=== PATIENT | male | born 1985 | race Caucasian/White ===

== ENCOUNTER 2017-10-12 08:20 | Emergency (ER) | payer SELFPAY ==
[~2017-10-12] VITALS: Ht 175.3 cm; Wt 80.0 kg
[2017-10-12 08:26] VITALS: BP 149/82; PULSE 108; RESP 18; TEMP 97.9; O2SAT 99
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
[2017-10-12] MEDS ORDERED: SODIUM CHLOR 0.9% 1000 ML INJ 1,000 ML IV ONE (09:00)
[2017-10-12] MEDS ORDERED: diphenhydrAMINE HCL 50 MG CAP PO ONE (12:15)
[2017-10-12] MEDS ORDERED: OLANZapine ODT 10 MG TAB PO ONE (12:15)
[2017-10-12 18:18] VITALS: BP 134/75; PULSE 65; RESP 16; TEMP 98.5; O2SAT 99
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
[2017-10-12 22:41] VITALS: BP 142/65; PULSE 68; RESP 18; TEMP 98.3; O2SAT 99
[2017-10-13 06:39] VITALS: BP 130/68; PULSE 71; RESP 17; TEMP 97.6; O2SAT 98
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
--- NOTE | 2017-10-13 11:22 | HHI.PYPN ---
Subjective Remarks Patient initially seen and screened by psychiatric nurse practitioner Mariam Toro, she has lift the Skelton act. And recommended patient to be discharged by ED staff. This being in the motor electrician hours the physician imaging assistant ordered the discharge delayed until the morning and requested a reevaluation. Patient is been seen by me this morning he is alert oriented cooperative is somewhat demanding and entitled and irritable. Or we does not meet Skelton criteria at this time I agree with nurse practitioner Mariam Toro's opinion patient to be discharged. Review of Systems Except as stated in HPI: all other systems reviewed are Neg Mental Status Examination Appearance: Appropriate (Wearing paper scrubs) Consciousness: Alert Orientation: x4 Motor Activity: Normal gait Speech: Unremarkable Language: Adequate Fund of Knowledge: Adequate Attention and Concentration: Adequate Memory: Unremarkable Mood: Angry (When a discussion of discharge was initiated) Affect: Appropriate Thought Process & Associations: Intact, Logical, Goal directed Thought Content: Appropriate Hallucination Type: None Delusion Type: None Suicidal Ideation: No Suicidal Plan: No Suicidal Intention: No Homicidal Ideation: No Homicidal Plan: No Homicidal Intention: No Insight: Poor Judgment: Impulsive Results Vitals/IOs Vital Signs Date Time Temp Pulse Resp B/P (MAP) Pulse Ox O2 Delivery O2 Flow Rate FiO2 10/13/17 11:17 10/13/17 06:39 97.6 71 17 98 Room Air Assessment & Plan Problem List: (1) Cocaine abuse ICD Codes: F14.10 - Cocaine abuse, uncomplicated Status: Acute (2) Substance-induced psychotic disorder ICD Codes: F19.959 - Other psychoactive substance use, unspecified with psychoactive substance-induced psychotic disorder,unspecified Status: Acute Assessment & Plan Estimated LOS: days I thank you with [facility]'s decision to lift Skelton act patient does not meet Skelton criteria he is to be discharged this morning Justification for Cont. Inpt. Referred to NA follow-up PCP Discharge Planning See above Request HC Surrog/Guard Advoc?: No Ed Stephens MD Oct 13, 2017 11:22
[2017-10-13 11:44] VITALS: BP 166/71; PULSE 84; RESP 16; TEMP 98.4; O2SAT 98
--- NOTE | 2017-10-13 12:17 | PD ---
Physical Exam Time Seen by Provider: 12:[address] Stephens has evaluated the patient, lifted Nafisa trinidad and cleared patient for discharge. Data Data Last Documented VS Vital Signs Date Time Temp Pulse Resp B/P (MAP) Pulse Ox O2 Delivery O2 Flow Rate FiO2 10/13/17 11:44 98.4 84 16 166/71 (102) 98 Room Air Orders Orders Drug Screen, Random Urine (10/12/17 08:33) Sodium Chlor 0.9% 1000 Ml Inj (Ns 1000 M (10/12/17 09:00) Psych Screen (10/12/17 10:31) Diet Regular Basic (10/12/17 Lunch) Olanzapine Odt (Zyprexa Zydis Odt) (10/12/17 12:15) Diphenhydramine (Benadryl) (10/12/17 12:15) Diet Regular Basic (10/12/17 Dinner) Diet Regular Basic (10/13/17 Breakfast) Diet Regular Basic (10/13/17 Lunch) Labs Laboratory Tests Test 10/12/17 08:52 Urine Opiates Screen NEG Urine Barbiturates Screen NEG Urine Amphetamines Screen NEG Urine Benzodiazepines Screen NEG Urine Cocaine Screen POS Urine Cannabinoids Screen POS MDM Supervised Visit with MARIAH: No Narrative Course Dr. Stephens has evaluated the patient, lifted Nafisa act and cleared patient for discharge. The patient is no longer acting paranoid. Says he did too much cocaine last night. Patient contracts safety. Denies suicidal or homicidal ideations. Patient will be provided community resource packet to [facility] for follow-up. Has friends and family for support. Patient was medically cleared by alternate provider prior to psych screening. Patient has been evaluated by psychiatry and and is now cleared for discharge. Diagnosis Primary Impression: Cocaine abuse Additional Impression: Substance-induced psychotic disorder Referrals: [facility] (Out patient) [facility] Primary Care Physician Psychiatrist [facility]os [facility] Patient Instructions: Cocaine Abuse (ED), General Instructions Departure Forms: Tests/Procedures Additional Instruction: Contract safety to your self and others Stop using drugs Follow-up with psychiatry Follow-up with primary care provider Follow-up with Moses Ackerman Return to the emergency department immediately with worsening of symptoms Med/Other Pt SpecificInfo: No Change to Meds, No Meds Exist/No RX given Scripts No Active Prescriptions or Reported Meds Disposition: 01 DISCHARGE HOME Condition: Stable Shannon Barnhart Oct 13, 2017 12:17
== END 2017-10-13 14:26 | disposition home or self-care (01) ==
LOC: NEPE 08:20 → NEPJ 10-13 14:26
DX: F14.159 Cocaine abuse with cocaine-induced psychotic disorder, unspecified (principal); Z72.0 Tobacco use
CPT/HCPCS: 80307; 99284; Q0163

== ENCOUNTER 2017-10-15 02:38 | Inpatient (IN) | payer SELFPAY ==
[~2017-10-15] VITALS: Ht 185.4 cm; Wt 84.8 kg
[2017-10-15] VITALS (11 sets, daily range): BP systolic 121–177; BP diastolic 51–90; PULSE 80–151; RESP 16–25; TEMP 98.7–101; O2SAT 96–100
[2017-10-15] MEDS ORDERED: SODIUM CHLOR 0.9% 1000 ML INJ 1,000 ML IV ONE ×2 (02:45→04:45)
[2017-10-15] MEDS ORDERED: LORazepam 2 MG/ML VIAL IV PUSH ONE ×2 (02:45→03:45)
--- NOTE | 2017-10-15 03:05 | PD ---
HPI Chief Complaint: OD/ Ingestion Time Seen by Provider: 02:44 Travel History International Travel<30 days: No Contact w/Intl Traveler<30days: No Traveled to known affect area: No History of Present Illness HPI The patient is a 32 year old male who presents to the [facility] emergency department with a history of being found agitated and confused. Ambulance services reported that the patient reportedly smoked a cigarette that was laced with something and then became agitated. The patient was so agitated that he became violent and had to be restrained for his and the ambulance services safety. The patient received 350 mg of ketamine IM for delirious agitation. The patient then became more calm, however he continued to be tachypneic and tachycardic. No other history is able to be obtained from the patient. The patient arrives with a heart rate in the 140s. The patient's electronic medical record was reviewed for additional history regarding the patient. According to the electronic medical record the patient was last seen in the emergency department on October 12, 2017 in a similar state. On that occasion the patient was positive for cocaine and cannabinoids. [facility] Past Medical History Narrative Medical The patient's past medical history is unable to be obtained. Medical History: Unable to Obtain Past Surgical History Surgical History: Unable to Obtain Social History Alcohol Use: Yes Tobacco Use: Yes Substance Use: Yes Allergies-Medications (Allergen,Severity, Reaction): Coded Allergies: No Known Allergies (Unverified , 10/15/17) Reported Meds & Prescriptions Reported Meds & Active Scripts Active No Active Prescriptions or Reported Medications Review of Systems ROS Limitations: Altered Mental Status, Psychotic Physical Exam Narrative General: The patient is a well-developed well-nourished male, in restraints on arrival, eyes open, however with a decreased level of consciousness consistent with a 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 Head and Neck exam: Head is normocephalic, evidence of an abrasion to the right side of the face and forehead. No increased facial bone motility. No crepitus or step-off of the facial bones. Eyes: The patient is uncooperative with formal neurologic testing or extraocular motion testing. The patient has conjunctival injection noted bilaterally. Nose: Midline septum with pink mucous membranes Mouth: Dentition unremarkable. Moist mucus membranes. Posterior oropharynx is not erythematous. No tonsillar hypertrophy. Uvula midline. Airway patent. Neck: No palpable lymphadenopathy. No nuchal rigidity. No thyromegaly. Cardiovascular: Sinus tachycardia in the 140s without murmurs, gallops, or rubs. No pulse deficit to the extremities on simultaneous auscultation and palpation of his radial artery. Lungs: Clear to auscultation bilaterally. No wheezes, rhonchi, or rales. Abdomen: Soft, without tenderness to palpation in all 4 quadrants of the abdomen. No guarding, rebound, or rigidity. Normal bowel sounds are audible. No tenderness on palpation of McBurney's point. Extremities: No clubbing, cyanosis, or edema. 2+ pulses in all 4 extremities. No calf tenderness on palpation. Back: No spinous process tenderness to palpation. No costovertebral angle tenderness to palpation. Neurologic Exam: Grossly nonfocal. The patient is uncooperative with formal neurologic testing. The patient moves all extremities equally with 5/5 strength. No evidence of facial asymmetry. The patient has intact sensation over all dermatomes. Skin Exam: No rash noted. Intact skin that is warm and dry. Data Data Last Documented VS Vital Signs Date Time Temp Pulse Resp B/P (MAP) Pulse Ox O2 Delivery O2 Flow Rate FiO2 10/15/17 02:58 101.0 151 25 121/51 (74) 100 Room Air Orders Orders Electrocardiogram (10/15/17 02:44) Complete Blood Count With Diff (10/15/17 02:44) Comprehensive Metabolic Panel (10/15/17 02:44) Creatine Kinase (Cpk) (10/15/17 02:44) Ckmb (Isoenzyme) Profile (10/15/17 02:44) Prothrombin Time / Inr (Pt) (10/15/17 02:44) Act Partial Throm Time (Ptt) (10/15/17 02:44) Lipase (10/15/17 02:44) Urinalysis - C+S If Indicated (10/15/17 02:44) Cath For Specimen (10/15/17 02:44) Magnesium (Mg) (10/15/17 02:44) Thyroid Stimulating Hormone (10/15/17 02:44) Chest, Single Ap (10/15/17 02:44) Iv Access Insert/Monitor (10/15/17 02:44) Ecg Monitoring (10/15/17 02:44) Oximetry (10/15/17 02:44) Drug Screen, Random Urine (10/15/17 02:44) Alcohol (Ethanol) (10/15/17 02:44) Salicylates (Aspirin) (10/15/17 02:44) Tylenol (Acetaminophen) (10/15/17 02:44) Ct Brain W/O Iv Contrast(Rout) (10/15/17 02:44) Sodium Chlor 0.9% 1000 Ml Inj (Ns 1000 M (10/15/17 02:45) Lorazepam Inj (Ativan Inj) (10/15/17 02:45) Lorazepam Inj (Ativan Inj) (10/15/17 03:45) CKMB (10/15/17 02:55) CKMB% (10/15/17 02:55) Acetaminophen (Tylenol) (10/15/17 04:45) Sodium Chlor 0.9% 1000 Ml Inj (Ns 1000 M (10/15/17 04:45) Admit To Inpatient (10/15/17 ) Vital Signs (Adult) Q4H (10/15/17 04:57) Activity Oob With Assistance (10/15/17 04:57) Flexographic Press Plate Setter / Telemetry .CONTINUOUS (10/15/17 04:57) Intake + Output LUISA.QSHIFT (10/15/17 04:57) Diet Npo (10/15/17 Breakfast) Sodium Chlor 0.9% 1000 Ml Inj (Ns 1000 M (10/15/17 04:57) Sodium Chloride 0.9% Flush (Ns Flush) (10/15/17 05:00) Sodium Chloride 0.9% Flush (Ns Flush) (10/15/17 09:00) Acetaminophen (Tylenol) (10/15/17 05:00) Ondansetron Inj (Zofran Inj) (10/15/17 05:00) Basic Metabolic Panel (Bmp) (10/16/17 06:00) Complete Blood Count With Diff (10/16/17 06:00) Creatine Kinase (Cpk) (10/15/17 09:00) Creatine Kinase (Cpk) (10/15/17 15:00) Case Management Consult (10/15/17 04:57) Naloxone Inj (Narcan Inj) (10/15/17 05:00) Inpatient Certification (10/15/17 ) Basic Metabolic Panel (Bmp) (10/15/17 09:00) Basic Metabolic Panel (Bmp) (10/15/17 15:00) Alcohol Withdrawal Asmt-Ciwa Q4HX18 (10/15/17 05:01) ^ Seizure Precautions (10/15/17 05:01) Thiamine Inj (Thiamine Inj) (10/15/17 06:00) Consult Cm-Etoh Abuse Dc Plan (10/15/17 ) Flumazenil Inj (Romazicon Inj) (10/15/17 05:15) Lorazepam (Ativan) (10/15/17 05:15) Lorazepam Inj (Ativan Inj) (10/15/17 05:15) Lorazepam (Ativan) (10/15/17 05:15) Lorazepam Inj (Ativan Inj) (10/15/17 05:15) Lorazepam Inj (Ativan Inj) (10/15/17 05:15) Lorazepam Inj (Ativan Inj) (10/15/17 05:15) Admit Order (Ed Use Only) (10/15/17 05:12) Labs Laboratory Tests Test 10/15/17 02:55 White Blood Count 19.8 TH/MM3 Red Blood Count 5.06 MIL/MM3 Hemoglobin 16.0 GM/DL Hematocrit 49.1 % Mean Corpuscular Volume 97.2 FL Mean Corpuscular Hemoglobin 31.6 PG Mean Corpuscular Hemoglobin Concent 32.5 % Red Cell Distribution Width 12.6 % Platelet Count 338 TH/MM3 Mean Platelet Volume 8.4 FL Neutrophils (%) (Auto) 53.0 % Lymphocytes (%) (Auto) 38.9 % Monocytes (%) (Auto) 5.5 % Eosinophils (%) (Auto) 2.0 % Basophils (%) (Auto) 0.6 % Neutrophils # (Auto) 10.5 TH/MM3 Lymphocytes # (Auto) 7.7 TH/MM3 Monocytes # (Auto) 1.1 TH/MM3 Eosinophils # (Auto) 0.4 TH/MM3 Basophils # (Auto) 0.1 TH/MM3 CBC Comment AUTO DIFF Differential Total Cells Counted 100 Neutrophils % (Manual) 51 % Band Neutrophils % 1 % Lymphocytes % 31 % Monocytes % 3 % Eosinophils % 4 % Neutrophils # (Manual) 10.7 TH/MM3 Metamyelocytes 1 % Myelocytes 1 % Differential Comment FINAL DIFF MANUAL Atypical Lymphocytes 8 % Platelet Estimate NORMAL Platelet Morphology Comment NORMAL Red Cell Morphology Comment NORMAL Prothrombin Time 10.7 SEC Prothromb Time International Ratio 1.1 RATIO Activated Partial Thromboplast Time 28.7 SEC Blood Urea Nitrogen 11 MG/DL Creatinine 2.05 MG/DL Random Glucose 212 MG/DL Total Protein 9.2 GM/DL Albumin 4.8 GM/DL Calcium Level 9.3 MG/DL Magnesium Level 3.5 MG/DL Alkaline Phosphatase 123 U/L Aspartate Amino Transf (AST/SGOT) 197 U/L Alanine Aminotransferase (ALT/SGPT) 68 U/L Total Bilirubin 0.6 MG/DL Sodium Level 139 MEQ/L Potassium Level 4.1 MEQ/L Chloride Level 99 MEQ/L Carbon Dioxide Level 7.3 MEQ/L Anion Gap 33 MEQ/L Estimat Glomerular Filtration Rate 38 ML/MIN Total Creatine Kinase 9259 U/L Creatine Kinase MB 7.9 NG/ML Creatine Kinase MB % 0.1 % Lipase 245 U/L Thyroid Stimulating Hormone 3rd Gen 1.730 uIU/ML Salicylates Level 4.4 MG/DL Acetaminophen Level LESS THAN 2.0 MCG/ML Ethyl Alcohol Level 23 MG/DL MDM Medical Decision Making Medical Screen Exam Complete: Yes Emergency Medical Condition: Yes Medical Record Reviewed: Yes Interpretation(s) Last Impressions Chest X-Ray 10/15/17 0244 Signed Impressions: Service Date/Time: Sunday, October 15, 2017 03:04 - CONCLUSION: No acute disease. Ed Rene MD Differential Diagnosis Substance-induced psychosis, versus acute psychotic break, versus delirium, versus sympathomimetic toxicity Narrative Course During the course of the patient's emergency department visit, the patient's history, examination, and differential diagnosis were reviewed with the patient. The patient was placed on a potline monitor with oximetry and frequent blood pressure monitoring. The patient had IV access obtained and blood work sent for analysis. An EKG was done on arrival. The patient's EKG shows a sinus tachycardia with a short MS interval, heart rate of 147, QRS duration is 94 ms, QTC 373 ms. The patient was noted to be febrile with a temp of 101. The patient was started on normal saline 2 L IV fluid bolus was administered. The patient was given Ativan 2 mg IV. The patient was given Tylenol 650 p.o. 1 after he became more awake and alert and was able to tolerate p.o. The patient's laboratory studies were reviewed and remarkable for a white count of 19.8, hemoglobin 16, platelets 338 with 51 neutrophils, 1 band, 31 lymphocytes, CMP is remarkable for CO2 of 7.3, anion gap 33, creatinine 2.05, glucose 212, magnesium 3.5, AST 197, alk phos 123, CPK 9259, MB percent 0.1. Lipase 245, TSH 1.73. PT 10.7, PTT 28.7, acetaminophen is less than 2, alcohol 23, salicylate 4.4 Radiology studies were reviewed and remarkable for a chest x-ray that shows no acute cardiopulmonary disease. The patient's results were discussed with the patient, including the plan of care. I explained that further testing and/ or monitoring is indicated based on the patient's history, examination, and/ or laboratory findings. Therefore, I recommended admission for additional evaluation. The patient expressed understanding and was agreeable with this plan. The patient was admitted to the hospital in guarded condition and sent to a bed under the care of the [facility] service. Physician Communication Physician Communication The patient's case including history, pertinent physical examination findings, and laboratory studies were discussed with Dr. Spivey. It was agreed that the patient would be admitted to the [facility] service. Diagnosis Primary Impression: Psychosis Qualified Codes: F29 - Unspecified psychosis not due to a substance or known physiological condition Additional Impressions: Sympathomimetic adverse reaction Qualified Codes: T44.905A - Adverse effect of unspecified drugs primarily affecting the autonomic nervous system, initial encounter Rhabdomyolysis Qualified Codes: M62.82 - Rhabdomyolysis Admitting Information Admitting Physician Requests: Admit Scripts No Active Prescriptions or Reported Meds Bisi Elizalde MD Oct 15, 2017 03:05
[2017-10-15 03:11] LABS: INTERNATIONAL NORMALIZED RATIO 1.1 RATIO; PROTHROMBIN TIME - PATIENT 10.7 SEC (9.8-11.6)
[2017-10-15 03:12] LABS: AUTOMATED NEUTROPHIL # 10.5 TH/MM3 (1.8-7.7); BASOPHIL # 0.1 TH/MM3 (0-0.2); BASOPHIL % 0.6 % (0.0-2.0); EOSINOPHIL # 0.4 TH/MM3 (0-0.4); HEMATOCRIT 49.1 % (39.0-51.0); LYMPH % 38.9 % (9.0-44.0); LYMPHOCYTE # 7.7 TH/MM3 (1.0-4.8); MEAN CELL VOLUME 97.2 FL (80.0-100.0); MEAN CORPUSCULAR HEMOGLOBIN 31.6 PG (27.0-34.0); MEAN CORPUSCULAR HGB CONC 32.5 % (32.0-36.0); MEAN PLATELET VOLUME 8.4 FL (7.0-11.0); MONO % 5.5 % (0.0-8.0); MONOCYTE # 1.1 TH/MM3 (0-0.9); PLATELET COUNT 338 TH/MM3 (150-450); RED BLOOD COUNT 5.06 MIL/MM3 (4.50-5.90); RED CELL DISTRIBUTION WIDTH 12.6 % (11.6-17.2); WHITE BLOOD COUNT 19.8 TH/MM3 (4.0-11.0)
--- NOTE | 2017-10-15 03:23 | RADRPT ---
EXAM DATE/TIME: 10/15/2017 03:04 [facility] COMPARISON: No previous studies available for comparison. INDICATIONS : Cough. OD. MEDICAL HISTORY : None. SURGICAL HISTORY : None. ENCOUNTER: Initial ACUITY: 1 day PAIN SCORE: 0/10 LOCATION: Bilateral chest FINDINGS: A single view of the chest demonstrates the lungs to be symmetrically aerated without evidence of mas s, infiltrate or effusion. The cardiomediastinal contours are unremarkable. Osseous structures are intact. CONCLUSION: No acute disease. Ed Rene MD on October 15, 2017 at 3:20 Board Certified Radiologist. This report was verified electronically.
[2017-10-15 03:52] LABS: ATYPICAL LYMPHOCYTES 8 % (0-0); BANDS 1 % (0-6); LYMPHOCYTES 31 % (9-44); METAMYELOCYTES 1 % (0-1); MONOCYTES 3 % (0-8); MYELOCYTES 1 % (0-0); NEUTROPHIL # MANUAL DIFF 10.7 TH/MM3 (1.8-7.7); POLYS (SEG NEUTROPHILS) 51 % (16-70)
[2017-10-15 03:55] LABS: ALKALINE PHOSPHATASE 123 U/L (45-117); TOTAL BILIRUBIN ADULT 0.6 MG/DL (0.2-1.0); TOTAL PROTEIN 9.2 GM/DL (6.4-8.2)
[2017-10-15 03:56] LABS: ALBUMIN 4.8 GM/DL (3.4-5.0); ALT (GPT) 68 U/L (12-78); AST (GOT) 197 U/L (15-37); BICARBONATE 7.3 MEQ/L (21.0-32.0); BLOOD UREA NITROGEN 11 MG/DL (7-18); CALCIUM 9.3 MG/DL (8.5-10.1); CHLORIDE 99 MEQ/L (98-107); CREATININE 2.05 MG/DL (0.60-1.30); GLOMERULAR FILTRATION RATE 38 ML/MIN (>89); GLUCOSE,RANDOM 212 MG/DL (74-106); MAGNESIUM 3.5 MG/DL (1.5-2.5); SODIUM (NA) 139 MEQ/L (136-145)
[2017-10-15 03:57] LABS: ACETAMINOPHEN LESS THAN 2.0 MCG/ML (10.0-30.0)
[2017-10-15] MEDS ORDERED: ACETAMINOPHEN 325 MG TAB PO ONE (04:45)
[2017-10-15] MEDS ORDERED: SODIUM CHLOR 0.9% 1000 ML INJ 1,000 ML IV SCH (04:57)
[2017-10-15] MEDS ORDERED: NALOXONE HCL 0.4 MG/ML AMP IV PUSH PRN (05:00)
[2017-10-15] MEDS ORDERED: ACETAMINOPHEN 325 MG TAB PO PRN (05:00)
[2017-10-15] MEDS ORDERED: ONDANSETRON HCL 4 MG/2 ML VIAL IVP PRN (05:00)
[2017-10-15] MEDS ORDERED: SODIUM CHLORIDE 0.9% FLUSH 10 ML FLUSH IV FLUSH PRN (05:00)
[2017-10-15] MEDS ORDERED: LORazepam 2 MG TAB PO PRN (05:15)
[2017-10-15] MEDS ORDERED: FLUMAZENIL 0.5 MG/5 ML VIAL IV PUSH PRN (05:15)
[2017-10-15] MEDS ORDERED: LORazepam 2 MG/ML VIAL IV PUSH PRN ×2 (05:15)
[2017-10-15] MEDS ORDERED: LORazepam 1 MG TAB PO PRN (05:15)
--- NOTE | 2017-10-15 05:23 | HHI.HP ---
[facility] No Primary Care Physician Admission Diagnosis Diagnoses: Travel History International Travel<30 Days: No Contact w/Intl Traveler <30 Da: No Traveled to Known Affected Are: No History of Present Illness 32-year-old male presents to the emergency department by EMS after being found agitated and confused. The patient remains disoriented and continually asks where he is. He does not answer my questions and any coherent manner. Per emergency department documentation, EMS reports that the patient smoked a cigarette that was laced with something and then he became agitated. The patient was so agitated that he became violent and had to be restrained. The patient received 350 mg ketamine IM for delirious agitation. As the emergency department the patient was tachypneic and tachycardic. Urine drug screen was positive for marijuana and cocaine with an alcohol level of 23. The patient is unable to provide any reasonable history. Review of Systems Unable to obtain secondary to clinical condition Past Family Social History Past Medical History Unable to obtain Past Surgical History Unable to obtain Reported Medications Reported Meds & Active Scripts Active No Active Prescriptions or Reported Medications Allergies: Coded Allergies: No Known Allergies (Unverified , 10/15/17) Family History Unable to obtain Social History Unable to obtain Physical Exam Vital Signs Vital Signs Date Time Temp Pulse Resp B/P (MAP) Pulse Ox O2 Delivery O2 Flow Rate FiO2 10/15/17 02:58 101.0 151 25 121/51 (74) 100 Room Air 10/15/17 02:51 149 25 96 Room Air 10/15/17 02:43 146 23 170/76 (107) 96 Physical Exam GENERAL: male lying in bed in 4-point restraints, agitated SKIN: No rashes, ecchymoses or lesions. Cool and dry. HEAD: Atraumatic. Normocephalic. EYES: Pupils equal round and reactive. Extraocular motions intact. No scleral icterus. No injection or drainage. ENT: Nose without bleeding, purulent drainage or septal hematoma. Airway patent. NECK: Trachea midline. CARDIOVASCULAR: Regular rate and rhythm without murmurs, gallops, or rubs. RESPIRATORY: Clear to auscultation. Breath sounds equal bilaterally. No wheezes , rales, or rhonchi. GASTROINTESTINAL: Abdomen soft, non-tender, nondistended. No hepato-splenomegaly , or palpable masses. MUSCULOSKELETAL: Extremities without clubbing, cyanosis, or edema. No joint tenderness, effusion, or edema noted. NEUROLOGICAL: Awake and alert. Cranial nerves II through XII intact. Moves all 4 extremities spontaneously. Laboratory Laboratory Tests Test 10/15/17 02:55 White Blood Count 19.8 Red Blood Count 5.06 Hemoglobin 16.0 Hematocrit 49.1 Mean Corpuscular Volume 97.2 Mean Corpuscular Hemoglobin 31.6 Mean Corpuscular Hemoglobin Concent 32.5 Red Cell Distribution Width 12.6 Platelet Count 338 Mean Platelet Volume 8.4 Neutrophils (%) (Auto) 53.0 Lymphocytes (%) (Auto) 38.9 Monocytes (%) (Auto) 5.5 Eosinophils (%) (Auto) 2.0 Basophils (%) (Auto) 0.6 Neutrophils # (Auto) 10.5 Lymphocytes # (Auto) 7.7 Monocytes # (Auto) 1.1 Eosinophils # (Auto) 0.4 Basophils # (Auto) 0.1 CBC Comment AUTO DIFF Differential Total Cells Counted 100 Neutrophils % (Manual) 51 Band Neutrophils % 1 Lymphocytes % 31 Monocytes % 3 Eosinophils % 4 Neutrophils # (Manual) 10.7 Metamyelocytes 1 Myelocytes 1 Differential Comment FINAL DIFF MANUAL Atypical Lymphocytes 8 Platelet Estimate NORMAL Platelet Morphology Comment NORMAL Red Cell Morphology Comment NORMAL Prothrombin Time 10.7 Prothromb Time International Ratio 1.1 Activated Partial Thromboplast Time 28.7 Blood Urea Nitrogen 11 Creatinine 2.05 Random Glucose 212 Total Protein 9.2 Albumin 4.8 Calcium Level 9.3 Magnesium Level 3.5 Alkaline Phosphatase 123 Aspartate Amino Transf (AST/SGOT) 197 Alanine Aminotransferase (ALT/SGPT) 68 Total Bilirubin 0.6 Sodium Level 139 Potassium Level 4.1 Chloride Level 99 Carbon Dioxide Level 7.3 Anion Gap 33 Estimat Glomerular Filtration Rate 38 Total Creatine Kinase 9259 Creatine Kinase MB 7.9 Creatine Kinase MB % 0.1 Lipase 245 Thyroid Stimulating Hormone 3rd Gen 1.730 Salicylates Level 4.4 Acetaminophen Level LESS THAN 2.0 Ethyl Alcohol Level 23 Result Diagram: 10/15/17 0255 10/15/17 0255 Caprini VTE Risk Assessment Caprini VTE Risk Assessment: No/Low Risk (score <= 1) Caprini Risk Assessment Model Point Value = 1 Point Value = 2 Point Value = 3 Point Value = 5 Age 41-60 Minor surgery BMI > 25 kg/m2 Swollen legs Varicose veins or History of unexplained or recurrent spontaneous Oral contraceptives or hormone replacement Sepsis (< 1 month) Serious lung disease, including pneumonia (< 1 month) Abnormal pulmonary function Acute myocardial infarction Congestive heart failure (< 1 month) History of inflammatory bowel disease Medical patient at bed rest Age 61-74 Arthroscopic surgery Major open surgery (> 45 min) Laparoscopic surgery (> 45 min) Malignancy Confined to bed (> 72 hours) Immobilizing plaster cast Central venous access Age >= 75 History of VTE Family history of VTE Factor V Leiden Prothrombin [id number] Lupus anticoagulant Anticardiolipin antibodies Elevated serum homocysteine Heparin-induced thrombocytopenia Other congenital or acquired thrombophilia Stroke (< 1 month) Elective arthroplasty Hip, pelvis, or leg fracture Acute spinal cord injury (< 1 month) Prophylaxis Regimen Total Risk Factor Score Risk Level Prophylaxis Regimen 0-1 Low Early ambulation 2 Moderate Order ONE of the following: *Sequential Compression Device (SCD) *Heparin 5000 units SQ BID 3-4 Higher Order ONE of the following medications: *Heparin 5000 units SQ TID *Enoxaparin/Lovenox 40 mg SQ daily (WT < 150 kg, CrCl > 30 mL/min) *Enoxaparin/Lovenox 30 mg SQ daily (WT < 150 kg, CrCl > 10-29 mL/min) *Enoxaparin/Lovenox 30 mg SQ BID (WT < 150 kg, CrCl > 30 mL/min) AND/OR *Sequential Compression Device (SCD) 5 or more Highest Order ONE of the following medications: *Heparin 5000 units SQ TID (Preferred with Epidurals) *Enoxaparin/Lovenox 40 mg SQ daily (WT < 150 kg, CrCl > 30 mL/min) *Enoxaparin/Lovenox 30 mg SQ daily (WT < 150 kg, CrCl > 10-29 mL/min) *Enoxaparin/Lovenox 30 mg SQ BID (WT < 150 kg, CrCl > 30 mL/min) AND *Sequential Compression Device (SCD) Assessment and Plan Assessment and Plan Assessment/plan: 1. Rhabdomyolysis Creatinine kinase 9259 Creatinine 2.05 Monitor renal function Aggressive IV fluid hydration Consider nephrology consult if renal function does not improve 2. Cocaine intoxication/Polysubstance abuse Unable to obtain social history secondary to patient's clinical condition Alcohol level 23 Urine drug screen positive for cocaine and marijuana, also positive on 10/12/17 [facility] protocol Monitor for signs of withdrawal 3. Altered mental status Maybe secondary to acute intoxication Possible underlying psychiatric illness Consider psychiatry consult once acute intoxication subsided FEN Regular diet Electrolytes: monitor and replete prn NS at 200 cc/hr Physician Certification 2 Midnight Certification Type: Admission for Inpatient Services Order for Inpatient Services The services are ordered in accordance with Medicare regulations or non- Medicare payer requirements, as applicable. In the case of services not specified as inpatient-only, they are appropriately provided as inpatient services in accordance with the 2-midnight benchmark. Estimated LOS (days): 2 2 days is the estimated time the patient will need to remain in the hospital, assuming treatment plan goals are met and no additional complications. Post-Hospital Plan: Not yet determined Carmen Spivey MD Oct 15, 2017 05:23
[2017-10-15] MEDS: THIAMINE INJ 100 MG in SODIUM CHLORIDE 0.9% INJ 100 ML IV SCH (06:00)
--- NOTE | 2017-10-15 08:23 | EKG ---
Date Performed: 10/15/2017 Time Performed: 02:45:12 PTAGE: 32 years EKG: SINUS TACHYCARDIA INCOMPLETE RIGHT BUNDLE BRANCH BLOCK TALL T-WAVES, SUGGESTS HYPERKALEMIA ABNORMAL ECG NO PREVIOUS TRACING DOCTOR: Malgorzata aKy Interpretating Date/Time 10/15/2017 08:21:40
[2017-10-15] MEDS: SODIUM CHLORIDE 0.9% FLUSH 10 ML FLUSH IV FLUSH SCH ×2 (09:00→21:20)
[2017-10-15 10:37] LABS: BILIRUBIN, URINE NEG (NEG); BLOOD, URINE MOD (NEG); GLUCOSE,URINE NEG (NEG); HYALINE CAST, URINE 11 /lpf (RARE); KETONE, URINE TRACE mg/dL (NEG); MUCUS URINE FEW /lpf (OCC); NITRITE,URINE NEG (NEG); PH, URINE 5.5 (5.0-8.5); SQUAMOUS EPITHELIAL CELL URINE <1 /hpf (0-5); URINE COLOR LIGHT-YELLOW (YELLW/STRAW); URINE LEUKOCYTE ESTERASE NEG (NEG)
[2017-10-15] MEDS: SODIUM BICARBONATE 8.4% INJ 100 MEQ in SODIUM CHLOR 0.45% 1000 ML INJ 1,000 ML IV SCH ×3 (10:55→19:42)
[2017-10-15] MEDS: LORazepam 2 MG/ML VIAL IV PUSH PRN ×10 (12:05→22:33)
--- NOTE | 2017-10-15 12:48 | RADRPT ---
EXAM DATE/TIME: 10/15/2017 12:25 [facility] COMPARISON: No previous studies available for comparison. INDICATIONS : Altered mental status. Possible overdose. RADIATION DOSE: 56.35 CTDIvol (mGy) MEDICAL HISTORY : Substance abuse. SURGICAL HISTORY : None. ENCOUNTER: Initial ACUITY: 1 day PAIN SCALE: Non-responsive LOCATION: cranial TECHNIQUE: Multiple contiguous axial images were obtained of the head. Using automated exposure control and adj ustment of the mA and/or kV according to patient size, radiation dose was kept as low as reasonably a chievable to obtain optimal diagnostic quality images. DICOM format image data is available electro nically for review and comparison. FINDINGS: Motion degraded study. CEREBRUM: The ventricles are normal for age. No evidence of midline shift, mass lesion, hemorrhage or acute in farction. No extra-axial fluid collections are seen. POSTERIOR FOSSA: The cerebellum and brainstem are intact. The 4th ventricle is midline. The cerebellopontine angle i s unremarkable. EXTRACRANIAL: The visualized portion of the orbits is intact. SKULL: The calvaria is intact. No evidence of skull fracture. CONCLUSION: No acute abnormality demonstrated. Ed Trammell MD on October 15, 2017 at 12:45 Board Certified Radiologist. This report was verified electronically.
[2017-10-15] MEDS ORDERED: OLANZapine IM 10 MG VIAL IM PRN (13:30)
--- NOTE | 2017-10-15 13:30 | HHI.PR ---
Subjective Remarks Follow-up toxic encephalopathy, rhabdomyolysis and acute kidney injury. Patient is not alert and oriented he at times becomes agitated requiring restraints. States his only medical issue is anxiety does not take any medications. No fever, headache, dizziness, nausea, numbness, focal weakness, neck pain, respiratory, GI and symptoms. Discussed with nursing Objective Vitals Vital Signs Date Time Temp Pulse Resp B/P (MAP) Pulse Ox O2 Delivery O2 Flow Rate FiO2 10/15/17 12:00 121 16 159/89 (112) 98 Room Air 10/15/17 11:00 106 16 170/76 (107) 98 Room Air 10/15/17 10:45 98.7 115 16 165/90 (115) 98 Room Air 10/15/17 09:15 98 16 177/81 (113) 98 Room Air 10/15/17 04:51 116 16 136/81 (99) 99 Room Air 10/15/17 02:58 101.0 151 25 121/51 (74) 100 Room Air 10/15/17 02:51 149 25 96 Room Air 10/15/17 02:43 146 23 170/76 (107) 96 I/O 10/14/17 10/14/17 10/14/17 10/15/17 10/15/17 10/15/17 07:00 15:00 23:00 07:00 15:00 23:00 Intake Total 3000 ml Balance 3000 ml Intake IV Total 3000 ml Result Diagram: 10/15/17 0255 10/15/17254 Imaging Last Impressions Head CT 10/15/17243 Signed Impressions: Service Date/Time: Sunday, October 15, 2017 12:25 - CONCLUSION: No acute abnormality demonstrated. Ed Trammell MD Chest X-Ray 10/15/17243 Signed Impressions: Service Date/Time: Sunday, October 15, 2017 03:04 - CONCLUSION: No acute disease. Ed Rene MD Objective Remarks GENERAL: male lying in bed in 4-point restraints, agitated SKIN: Abrasion right forehead bruises noted in his back right medial thigh EYES: Pupils equal round and reactive. Extraocular motions intact. No scleral icterus. No injection or drainage. CARDIOVASCULAR: Regular rate and rhythm without murmurs, gallops, or rubs. RESPIRATORY: Clear to auscultation. Breath sounds equal bilaterally. No wheezes , rales, or rhonchi. GASTROINTESTINAL: Abdomen soft, non-tender, nondistended. MUSCULOSKELETAL: Extremities without clubbing, cyanosis, or edema. No joint tenderness, effusion, or edema noted. NEUROLOGICAL: Awake and alert. Cranial nerves II through XII intact. Moves all 4 extremities spontaneously. Procedures none A/P Problem List: (1) Rhabdomyolysis ICD Code: M62.82 - Rhabdomyolysis Status: Acute Assessment and Plan 1. Rhabdomyolysis likely from cocaine. Switch to bicarb infusion and continue close monitoring of CK levels with aggressive IV hydration 2. Acute kidney injury secondary to above. Avoid nephrotoxins consider nephrology consult 3. Cocaine intoxication/Polysubstance abuse. He has been counseled. [facility] protocol Monitor for signs of withdrawal 4. Toxic encephalopathy. Improving but remains agitated. Will add Haldol and consult psychiatry. Restraints 5. Fever possible sepsis. Chest x-ray image interpreted by me with no acute cardiopulmonary disease. Urinalysis not suggestive of UTI. Consider lumbar puncture if persistent fever and confusion FEN Regular diet Electrolytes: monitor and replete prn IVF at 200 cc/hr Wd care Patient will be transferred to ICU for close monitoring of his condition Problem Qualifiers (1) Rhabdomyolysis: Qualified Codes: M62.82 - Rhabdomyolysis Mitul Booker MD Oct 15, 2017 13:30
[2017-10-15] MEDS: HALOPERIDOL LACTATE 5 MG/ML AMP IM PRN ×2 (14:18→21:22)
[2017-10-15 18:24] LABS: BICARBONATE 21.4 MEQ/L (21.0-32.0); CALCIUM 8.1 MG/DL (8.5-10.1); CREATININE 2.67 MG/DL (0.60-1.30)
[2017-10-15] MEDS ORDERED: CHLORHEXIDINE GLUCONATE 2 % 1 PACK (2 CLOTHS)(extra cloths) TOPICAL PRN (22:30)
[2017-10-15] MEDS ORDERED: HALOPERIDOL LACTATE 5 MG/ML AMP OTHER SCH (22:45)
[2017-10-15] MEDS ORDERED: LORazepam 2 MG/ML VIAL IV SCH (22:45)
[2017-10-15] MEDS ORDERED: diphenhydrAMINE HCL 50 MG/ML VIAL IV SCH (22:45)
[2017-10-16] VITALS (24 sets, daily range): BP systolic 128–161; BP diastolic 59–88; PULSE 89–120; RESP 16–32; TEMP 98.3–98.5; O2SAT 90–100
[2017-10-16] MEDS: SODIUM BICARBONATE 8.4% INJ 100 MEQ in SODIUM CHLOR 0.45% 1000 ML INJ 1,000 ML IV SCH ×3 (02:20→13:00)
[2017-10-16] MEDS: LORazepam 2 MG/ML VIAL IV PUSH PRN ×5 (03:52→07:21)
[2017-10-16] MEDS: CHLORHEXIDINE GLUCONATE 2 % 1 PACK (2 CLOTHS)(taper/protocol) TOPICAL SCH (03:53)
[2017-10-16 04:07] LABS: AUTOMATED NEUTROPHIL # 12.9 TH/MM3 (1.8-7.7); BASOPHIL % 0.2 % (0.0-2.0); EOSINOPHIL % 0.2 % (0.0-4.0); HEMATOCRIT 40.7 % (39.0-51.0); LYMPH % 12.4 % (9.0-44.0); MEAN CELL VOLUME 90.8 FL (80.0-100.0); MEAN CORPUSCULAR HEMOGLOBIN 31.2 PG (27.0-34.0); MEAN CORPUSCULAR HGB CONC 34.4 % (32.0-36.0); MEAN PLATELET VOLUME 8.2 FL (7.0-11.0); MONOCYTE # 0.9 TH/MM3 (0-0.9); NEUT % 81.2 % (16.0-70.0); PLATELET COUNT 217 TH/MM3 (150-450); RED BLOOD COUNT 4.48 MIL/MM3 (4.50-5.90); RED CELL DISTRIBUTION WIDTH 12.4 % (11.6-17.2); WHITE BLOOD COUNT 15.8 TH/MM3 (4.0-11.0)
[2017-10-16] MEDS: HALOPERIDOL LACTATE 5 MG/ML AMP IM PRN (04:12)
[2017-10-16] MEDS ORDERED: HALOPERIDOL LACTATE 5 MG/ML AMP IM ONE (04:45)
[2017-10-16] MEDS ORDERED: LORazepam 2 MG/ML VIAL IV PUSH ONE ×2 (04:45→16:45)
[2017-10-16] MEDS ORDERED: diphenhydrAMINE HCL 50 MG/ML VIAL IV PUSH ONE (04:45)
[2017-10-16 06:32] LABS: BICARBONATE 26.9 MEQ/L (21.0-32.0); CALCIUM 8.2 MG/DL (8.5-10.1); CREATININE 2.4 MG/DL (0.60-1.30)
[2017-10-16] MEDS: THIAMINE INJ 100 MG in SODIUM CHLORIDE 0.9% INJ 100 ML IV SCH (06:49)
[2017-10-16] MEDS ORDERED: POTASSIUM CHLORIDE 10 MEQ CONTROLLED RELEASE TAB PO ONE (09:15)
--- NOTE | 2017-10-16 10:26 | HHI.PR ---
Subjective Remarks Follow-up encephalopathy. Patient was agitated overnight received multiple doses of Ativan, Haldol, Zyprexa and Benadryl. Currently sedated protecting airway. Discussed with nursing, patient was confused and tremulous. No fever Objective Vitals Vital Signs Date Time Temp Pulse Resp B/P (MAP) Pulse Ox O2 Delivery O2 Flow Rate FiO2 10/16/17 06:00 109 10/16/17 04:00 98.3 115 22 146/67 (93) 99 10/16/17 04:00 115 10/16/17 02:00 107 10/16/17 00:00 98.4 110 20 161/85 (110) 99 10/16/17 00:00 110 10/15/17 21:04 10/15/17 19:44 80 18 137/65 (89) 100 Room Air 10/15/17 19:06 86 16 134/73 (93) 99 Room Air 10/15/17 17:58 86 16 149/66 (93) 100 Room Air 10/15/17 14:55 105 16 139/75 (96) 98 Room Air 10/15/17 12:00 121 16 159/89 (112) 98 Room Air 10/15/17 11:00 106 16 170/76 (107) 98 Room Air 10/15/17 10:45 98.7 115 16 165/90 (115) 98 Room Air I/O 10/15/17 10/15/17 10/15/17 10/16/17 10/16/17 10/16/17 07:00 15:00 23:00 07:00 15:00 23:00 Intake Total 3000 ml 120 ml Output Total 800 ml Balance 3000 ml -680 ml Intake Oral 120 ml IV Total 3000 ml Output Urine Total 800 ml # Bowel Movements 0 Result Diagram: 10/16/17 0255 10/16/17 0539 Imaging Last Impressions Head CT 10/15/17243 Signed Impressions: Service Date/Time: Sunday, October 15, 2017 12:25 - CONCLUSION: No acute abnormality demonstrated. Ed Trammell MD Chest X-Ray 10/15/17243 Signed Impressions: Service Date/Time: Sunday, October 15, 2017 03:04 - CONCLUSION: No acute disease. Ed Rene MD Objective Remarks GENERAL: Critically ill male lying in bed in 4-point restraints, sedated but protecting airway SKIN: Abrasion right forehead bruises noted in his back right medial thigh EYES: Pupils equal round and reactive. Extraocular motions intact. No scleral icterus. No injection or drainage. CARDIOVASCULAR: Regular rate and rhythm without murmurs, gallops, or rubs. RESPIRATORY: Clear to auscultation. Breath sounds equal bilaterally. No wheezes , rales, or rhonchi. GASTROINTESTINAL: Abdomen soft, nondistended. MUSCULOSKELETAL: Extremities without clubbing, cyanosis, or edema. No joint effusion, or edema noted. NEUROLOGICAL: Sedated was moving all ext and screaming per acquisitions logistics analyst none A/P Problem List: (1) Rhabdomyolysis ICD Code: M62.82 - Rhabdomyolysis Status: Acute Assessment and Plan 1. Rhabdomyolysis likely from cocaine. CK over 10,000 still significantly elevated continue bicarb infusion and close monitoring of CK levels 2. Acute kidney injury secondary to above. Nonoliguric. Avoid nephrotoxins consider imaging study and nephrology consult 3. Cocaine intoxication/Polysubstance abuse. He has been counseled. [facility] protocol Monitor for signs of withdrawal 4. Toxic encephalopathy. Worse he is withdrawing. Will add RTC Librium and ct Haldol consulted psychiatry. Restraints 5. Fever possible sepsis. Chest x-ray image interpreted by me with no acute cardiopulmonary disease. Urinalysis not suggestive of UTI. Consider lumbar puncture if persistent fever and confusion FEN Regular diet Electrolytes: monitor and replete prn IVF at 200 cc/hr Wd care Keep in ICU he is critically ill hi likelihood of decompensation(resp failure) critical time spent 35 mins. Consult [facility] dw Dr Lopez to assume care Problem Qualifiers (1) Rhabdomyolysis: Qualified Codes: M62.82 - Rhabdomyolysis Mitul Booker MD Oct 16, 2017 10:26
[2017-10-16] MEDS ORDERED: GLUCAGON 1 MG/ML VIAL OTHER PRN (10:30)
[2017-10-16] MEDS ORDERED: DEXTROSE 50% IN WATER 50 ML VIAL(D50) IV PUSH PRN (10:30)
[2017-10-16] MEDS: SODIUM CHLORIDE 0.9% FLUSH 10 ML FLUSH IV FLUSH SCH ×2 (10:49→22:10)
[2017-10-16 12:29] LABS: MAGNESIUM 2.6 MG/DL (1.5-2.5)
[2017-10-16] MEDS: chlordiazePOXIDE 25 MG CAP PO SCH ×4 (13:00→18:15)
--- NOTE | 2017-10-16 13:19 | PD.PSY.CON ---
Provisional Diagnosis Admission Date Oct 15, 2017 at 05:14 [place]. Unspecified psychosis, substance-induced psychosis, polysubstance dependence, History of Present Illness Service Psychiatry Consult Requested By Critical care Reason for Consult Agitation and aggressive behavior Primary Care Physician No Primary Care Physician HPI The patient is a is a 32-year-old man, domiciled alone in [facility], employed in construction, single, with psychiatric history of polysubstance dependence, including cocaine, amphetamines, cannabis, alcohol, benzodiazepines , history of poor impulse control, aggressive behavior in the past, patient was seen on discharge in [facility] a couple of days ago by Dr. Stephens, as per his note "He did not present any evidence of any psychosis, no doug or hypomania. 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 The patient made very clear requests for his discharge including a taxi back to [place] and that he be discharged in the morning. He also requested to have food before he was discharged. At this time the patient does not meet criteria to remain under the Skelton act as he does not present a evidence of unstable mental illness. [place] statues excludes intoxication or conditions manifested only by antisocial behavior substance abuse impairment as criteria for the Skelton act.BA is lifted", no reported previous medical history, who presents today via Per emergency department documentation, EMS reports that the patient smoked a cigarette that was laced with something and then he became agitated. The patient was so agitated that he became violent and had to be restrained. The patient received 350 mg ketamine IM for delirious agitation. As the emergency department the patient was tachypneic and tachycardic. Urine drug screen was positive for marijuana, benzos, and cocaine with an alcohol level of 23. The patient is unable to provide any reasonable history at the moment of his arrival. He was admitted due to rhabdomyolysis and acute renal failure. Patient consulted to psychiatry due to psychosis and agitation. On psychiatric evaluation today the patient is completely sedated, restrained in four-point unable to provide any significant information for the psychiatric assessment. I got collateral information from his mother, [phone], Veronica Lees, who states that the patient has psychiatric history of anxiety and PTSD. He has never been hospitalized in psychiatry, he does not take any medications, she denies previous suicidal attempts. She reports the patient has been using multiple drugs for a long time. In the last weeks he found a job in the [employer] in construction and has been living in motels. She describes the patient as a person with short temper, poor impulse control, who can easily become aggressive. Patient has been in long term multiple times. Review of Systems ROS Limitations: Unresponsive, Uncooperative Constitutional: DENIES: Diaphoretic episodes, Fatigue, Fever, Weight gain, Weight loss, Chills, Dizziness, Change in appetite, Night Sweats Past Family Social History Coded Allergies: No Known Allergies (Unverified , 10/15/17) No Active Prescriptions or Reported Meds Current Medications Medications (Trade) Dose Ordered Sig/Nirmal Route Start Time Stop Time Status Last Admin (NS Flush) 2 ml UNSCH PRN IV FLUSH 10/15/17 05:00 (NS Flush) 2 ml BID IV FLUSH 10/15/17 09:00 10/16/17 10:49 (Tylenol) 650 mg Q4H PRN PO 10/15/17 05:00 (Zofran Inj) 4 mg Q6H PRN IVP 10/15/17 05:00 (Narcan Inj) 0.4 mg UNSCH PRN IV PUSH 10/15/17 05:00 Thiamine HCl 100 mg/Sodium Chloride 101 ml @ 100 mls/hr Q24H IV 10/15/17 06:00 10/18/17 05:59 10/16/17 06:49 (Romazicon Inj) 0.2 mg Q1M PRN IV PUSH 10/15/17 05:15 (Ativan) 1 mg Q4H PRN PO 10/15/17 05:15 (Ativan Inj) 1 mg Q4H PRN IV PUSH 10/15/17 05:15 (Ativan) 2 mg Q2H PRN PO 10/15/17 05:15 (Ativan Inj) 2 mg Q2H PRN IV PUSH 10/15/17 05:15 10/15/17 10:43 (Ativan Inj) 2 mg Q1H PRN IV PUSH 10/15/17 05:15 10/15/17 20:35 (Ativan Inj) 2 mg Q15M PRN IV PUSH 10/15/17 05:15 10/16/17 07:21 Sodium Bicarbonate 100 meq/Sodium Chloride 1,100 ml @ 200 mls/hr Q5H30M IV 10/15/17 09:30 10/16/17 10:50 (Haldol Inj) 2 mg Q6H PRN IM 10/15/17 13:30 10/16/17 04:12 (ZyPREXA INJ) 10 mg DAILY PRN IM 10/15/17 13:30 10/16/17 07:17 Miscellaneous Information Patient in critical care unit? Ass... Q361D .XX 10/15/17 22:30 10/15/17 22:30 (Chlorhexidine 2% Cloth) 3 pack DAILY@04 TOPICAL 10/16/17 04:00 10/20/17 04:01 10/16/17 03:53 (Chlorhexidine 2% Cloth) 3 pack UNSCH PRN TOPICAL 10/15/17 22:30 10/20/17 22:28 (Librium) 25 mg TID PO 10/16/17 13:00 (D50w (Vial) Inj) 50 ml UNSCH PRN IV PUSH 10/16/17 10:30 (Glucagon Inj) 1 mg UNSCH PRN OTHER 10/16/17 10:30 Family Psych History No family psychiatric history, as per mother Social History Patient was born and raised in [place], he lives in [facility] in the [facility], single, employed in construction Physical Exam Vital Signs Vital Signs Date Time Temp Pulse Resp B/P (MAP) Pulse Ox O2 Delivery O2 Flow Rate FiO2 10/16/17 12:00 109 10/16/17 08:00 98.3 27 135/75 (95) 10/16/17 04:00 99 10/15/17 19:44 Room Air I/O 10/16/17 10/16/17 10/17/17 08:00 16:00 00:00 Intake Total 120 ml Output Total 800 ml Balance -680 ml Lab Results Test 10/15/17 17:10 10/15/17 21:30 10/16/17 02:55 10/16/17 05:39 Blood Urea Nitrogen 20 MG/DL 18 MG/DL Creatinine 2.67 MG/DL 2.40 MG/DL Random Glucose 108 MG/DL 117 MG/DL Calcium Level 8.1 MG/DL 8.2 MG/DL Sodium Level 141 MEQ/L 146 MEQ/L Potassium Level 3.3 MEQ/L 3.3 MEQ/L Chloride Level 108 MEQ/L 109 MEQ/L Carbon Dioxide Level 21.4 MEQ/L 26.9 MEQ/L Anion Gap 12 MEQ/L 10 MEQ/L Estimat Glomerular Filtration Rate 28 ML/MIN 32 ML/MIN Total Creatine Kinase 18281 U/L 03925 U/L Creatine Kinase MB 39.0 NG/ML 15.9 NG/ML Creatine Kinase MB % 0.2 % 0.1 % Nasal Screen MRSA (PCR) MRSA NOT DETECTED White Blood Count 15.8 TH/MM3 Red Blood Count 4.48 MIL/MM3 Hemoglobin 14.0 GM/DL Hematocrit 40.7 % Mean Corpuscular Volume 90.8 FL Mean Corpuscular Hemoglobin 31.2 PG Mean Corpuscular Hemoglobin Concent 34.4 % Red Cell Distribution Width 12.4 % Platelet Count 217 TH/MM3 Mean Platelet Volume 8.2 FL Neutrophils (%) (Auto) 81.2 % Lymphocytes (%) (Auto) 12.4 % Monocytes (%) (Auto) 6.0 % Eosinophils (%) (Auto) 0.2 % Basophils (%) (Auto) 0.2 % Neutrophils # (Auto) 12.9 TH/MM3 Lymphocytes # (Auto) 2.0 TH/MM3 Monocytes # (Auto) 0.9 TH/MM3 Eosinophils # (Auto) 0.0 TH/MM3 Basophils # (Auto) 0.0 TH/MM3 CBC Comment DIFF FINAL Differential Comment Magnesium Level 2.6 MG/DL Mental Status Examination Appearance: Dirty, Disheveled Consciousness: Clouded Orientation: Person Mood: Angry Affect: Irritable Thought Process & Associations: Loose associations, Disorganized Thought Content: Bizarre thinking, Racing thoughts Hallucination Type: None Delusion Type: Bizarre, Paranoid Suicidal Ideation: No Suicidal Plan: No Suicidal Intention: No Homicidal Ideation: No Homicidal Plan: No Homicidal Intention: No Insight: Poor Judgment: Poor Assessment & Plan Problem List: (1) Psychosis ICD Codes: F29 - Unspecified psychosis not due to a substance or known physiological condition Status: Acute Assessment & Plan: Patient continues to be acutely psychotic, agitated, was recently sedated, and now is unable to provide any significant information for the psychiatric assessment at the moment. Unclear is current presentation is related with substance intoxication/withdrawal or primary psychosis. Continue medical treatment as needed. Continue CIWA protocol. QTc is 442. Order Haldol 5 mg IV with Ativan IV every 8 hours as needed aggressive behavior and agitation. Will order Haldol 5 mg twice daily for acute psychosis and behavioral control. Patient may benefit of psychiatric admission if behavior persist beyond medical clearance. I will follow-up. Assessment & Plan Estimated LOS: days Problem Qualifiers (1) Psychosis: Qualified Codes: F29 - Unspecified psychosis not due to a substance or known physiological condition Edenilson Moreno MD Oct 16, 2017 13:19
[2017-10-16] MEDS: HALOPERIDOL 5 MG TAB PO SCH ×3 (13:30→22:09)
[2017-10-16] MEDS ORDERED: HALOPERIDOL LACTATE 5 MG/ML AMP IM PRN (13:30)
[2017-10-16] MEDS: SODIUM CHLOR 0.45% 1000 ML INJ 1,000 ML IV SCH ×2 (15:58→22:10)
--- NOTE | 2017-10-16 16:53 | RADRPT ---
EXAM DATE/TIME: 10/16/2017 16:13 [place] COMPARISON: No previous studies available for comparison. INDICATIONS : Left arm pain, arm appears swollen and discolored, evaluate for rhabdomyolysis MEDICAL HISTORY : None. SURGICAL HISTORY : None. ENCOUNTER: Initial ACUITY: 1 day PAIN SCORE: Non-responsive. LOCATION: Left forearm FINDINGS: There is generalized soft tissue swelling. Other than a left antecubital fossa IV, no radiopaque fore ign body seen. Bones are normal. No gas seen in the soft tissues. CONCLUSION: Nonspecific soft tissue swelling. Ed Trammell MD on October 16, 2017 at 16:50 Board Certified Radiologist. This report was verified electronically.
--- NOTE | 2017-10-16 17:00 | PD.CONS ---
[facility] Service Critical Care Medicine Consult Requested By Reason for Consult Rhabdomyolysis, polysubstance use, altered mental status Primary Care Physician No Primary Care Physician History of Present Illness This is a 32-year-old male with no reported psychiatric history and no reported previous medical history, that presented on 10/15 via EMS after he was found down , confused and agitated in someone's backyard. The patient remained disoriented . He does not answer my questions and any coherent manner Per emergency department documentation, EMS reports that the patient smoked a cigarette that was laced with something and then he became agitated. The patient was so agitated that he became violent and had to be restrained. The patient received 350 mg ketamine IM for delirious agitation in the ED. He was previously admitted approximately a week ago . At that time patient was requesting to be discharged and that he did not want to stay behind locked doors. He did not present any evidence of any psychosis, no doug or hypomania at that time. At that time the patient did not meet criteria to remain under the [place]el[place] Act as he did not present evidence of unstable mental illness. [place] statues excludes intoxication or conditions manifested only by antisocial behavior substance abuse impairment as criteria for the Skelton Act. The Skelton Act was lifted and the patient was discharged home. On this readmission the patient had laboratory and imaging studies the patient was noted to have rhabdomyolysis with a significantly elevated creatinine kinase, tachypneic and tachycardic, was admitted to the hospitalist service. Overnight the patient received sedatives was placed on a CIWA protocol and remains confused, lethargic ,and agitated requiring 4 point restraints. Critical care medicine was consulted. ROS - General Review of Systems Unable to obtain secondary to clinical condition PFSH Past Family Social History Past Medical History Unable to obtain Past Surgical History Unable to obtain Reported Medications Reported Meds & Active Scripts Active No Active Prescriptions or Reported Medications Allergies: Coded Allergies: No Known Allergies (Unverified , 10/15/17) Family History Unable to obtain Social History Unable to obtain Physical Exam Vital Signs Vital Signs Date Time Temp Pulse Resp B/P (MAP) Pulse Ox O2 Delivery O2 Flow Rate FiO2 10/16/17 12:00 109 10/16/17 12:00 98.5 109 26 158/88 (111) 100 10/16/17 11:00 109 10/16/17 10:00 113 10/16/17 09:00 115 10/16/17 08:00 117 10/16/17 08:00 98.3 117 27 135/75 (95) 10/16/17 07:00 109 10/16/17 06:00 109 10/16/17 04:00 98.3 115 22 146/67 (93) 99 10/16/17 04:00 115 10/16/17 02:00 107 10/16/17 00:00 98.4 110 20 161/85 (110) 99 10/16/17 00:00 110 10/15/17 21:04 10/15/17 19:44 80 18 137/65 (89) 100 Room Air 10/15/17 19:06 86 16 134/73 (93) 99 Room Air 10/15/17 17:58 86 16 149/66 (93) 100 Room Air Physical Exam GENERAL: Disheveled well-developed well male, bruising noted left forearm, exquisitely painful upon touch. Light bruising noted on forehead SKIN: Warm and dry. HEAD: Atraumatic. Normocephalic. EYES: Pupils equal and round. No scleral icterus. No injection or drainage. ENT: No nasal bleeding or discharge. Mucous membranes pink and moist. NECK: Trachea midline. No JVD. CARDIOVASCULAR: Normal rate, tachycardic rhythm. RESPIRATORY: No accessory muscle use. Clear to auscultation. Breath sounds equal bilaterally. GASTROINTESTINAL: Abdomen soft, non-tender, nondistended. No guarding. MUSCULOSKELETAL: Extremities without clubbing, cyanosis, or edema. No obvious deformities. Tenderness upon palpation left forearm NEUROLOGICAL: Awake and alert. RASS 0. No gross focal/sensory deficits. Follows commands in all 4 extremities. Laboratory Laboratory Tests Test 10/15/17 17:10 10/15/17 21:30 10/16/17 02:55 10/16/17 05:39 Blood Urea Nitrogen 20 18 Creatinine 2.67 2.40 Random Glucose 108 117 Calcium Level 8.1 8.2 Sodium Level 141 146 Potassium Level 3.3 3.3 Chloride Level 108 109 Carbon Dioxide Level 21.4 26.9 Anion Gap 12 10 Estimat Glomerular Filtration Rate 28 32 Total Creatine Kinase 45438 71686 Creatine Kinase MB 39.0 15.9 Creatine Kinase MB % 0.2 0.1 Nasal Screen MRSA (PCR) MRSA NOT DETECTED White Blood Count 15.8 Red Blood Count 4.48 Hemoglobin 14.0 Hematocrit 40.7 Mean Corpuscular Volume 90.8 Mean Corpuscular Hemoglobin 31.2 Mean Corpuscular Hemoglobin Concent 34.4 Red Cell Distribution Width 12.4 Platelet Count 217 Mean Platelet Volume 8.2 Neutrophils (%) (Auto) 81.2 Lymphocytes (%) (Auto) 12.4 Monocytes (%) (Auto) 6.0 Eosinophils (%) (Auto) 0.2 Basophils (%) (Auto) 0.2 Neutrophils # (Auto) 12.9 Lymphocytes # (Auto) 2.0 Monocytes # (Auto) 0.9 Eosinophils # (Auto) 0.0 Basophils # (Auto) 0.0 CBC Comment DIFF FINAL Differential Comment Magnesium Level 2.6 Result Diagram: 10/16/17 0255 10/16/17 0539 Imaging Last Impressions Head CT 10/15/17243 Signed Impressions: Service Date/Time: Sunday, October 15, 2017 12:25 - CONCLUSION: No acute abnormality demonstrated. Ed Trammell MD Chest X-Ray 10/15/17243 Signed Impressions: Service Date/Time: Sunday, October 15, 2017 03:04 - CONCLUSION: No acute disease. Ed Rene MD Septic Shock Reassessment Septic shock perfusion: reassessment completed Assessment and Plan Assessment and Plan Assessment: This is a 32-year-old male with a history of polysubstance abuse and altered mental status previously admitted in [facility] recently now presenting with polysubstance abuse altered mental status, found down now with rhabdomyolysis. Admit to ICU. Neurologic: Polysubstance use disorder Altered mental status Metabolic encephalopathy Agitation Neuro checks per ICU protocol Minimize sedative type medication Provide Haldol for agitation Discontinue CIWA protocol at this time Consider Ativan as needed Possible concomitant alcohol withdrawal seizure precautions Continue restraints for patient safety Librium every 8 hours 10/15 CT brain-no acute disease Respiratory: Maintain O2 saturation greater than 92% Provide O2 via nasal cannula 1-4 LPM N/C Duo nebs as needed 10/15-chest x-ray no active disease Cardiovascular: Sinus tachycardia Obtain 12-lead EKG Will avoid beta blockers in the setting of cocaine use Consider hydralazine and calcium channel дмитрий Obtain troponin levels and trend Renal: Acute kidney injury Insert fernandez and maintain strict I&O -- Strict I/Os FEN/GI: Rhabdomyolysis Acute kidney injury Electrolyte derangement Monitor BMP and replete per ICU protocol CK level [id number]-> [id number] to monitor Half-normal saline at 200 cc/hour AST noted elevation 197 Heme/ID: Leukocytosis Monitor WBC-continue to trend Will obtain blood and urine cultures if clinically indicated Endocrine: Hyperglycemia Obtain hemoglobin A1c TSH 1.730 -- SSI Prophylaxis: GI Prophylaxis Famotidine DVT Prophylaxis -- SCDs SQ Heparin Lines: Peripheral IVsx2 Dispo: my billing statement This patient remains critically ill with one or more organ systems which are or may become a threat to life. I have spent in excess of 45 minutes discontinuously in the care and management of this patient. This time is exclusive of procedures, and includes, but is not limited to, evaluation of the patient, review of the medical record, discussions with family, consultants, nursing staff, or respiratory therapy, and documentation in the medical record. Code Status Full Discussed Condition With Dr. Booker, Dr. Moreno, SENIOR MARKETING SPECIALIST at bedside ([place]) Earnestine Lopez MD Oct 16, 2017 17:00
[2017-10-16 17:51] LABS: HEMOGLOBIN A1C 5.1 % (4.3-6.0)
[2017-10-16] MEDS: DEXMEDETOMIDINE INJ 200 MCG in SODIUM CHLORIDE 0.9% INJ 50 ML IV PRN ×3 (18:15→20:51)
[2017-10-16] MEDS ORDERED: DEXMEDETOMIDINE INJ 1,000 MCG in SODIUM CHLOR 0.9% 250 ML INJ 240 ML IV PRN (21:15)
[2017-10-17] VITALS (25 sets, daily range): BP systolic 93–176; BP diastolic 58–104; PULSE 78–108; RESP 8–34; TEMP 98.7–99.1; O2SAT 90–100
[2017-10-17] MEDS: SODIUM CHLOR 0.45% 1000 ML INJ 1,000 ML IV SCH ×6 (02:23→23:21)
[2017-10-17 03:42] LABS: AUTOMATED NEUTROPHIL # 8.3 TH/MM3 (1.8-7.7); BASOPHIL # 0.1 TH/MM3 (0-0.2); BASOPHIL % 0.6 % (0.0-2.0); EOSINOPHIL # 0.2 TH/MM3 (0-0.4); EOSINOPHIL % 1.6 % (0.0-4.0); HEMATOCRIT 38.1 % (39.0-51.0); HEMOGLOBIN 13.1 GM/DL (13.0-17.0); LYMPH % 19.7 % (9.0-44.0); LYMPHOCYTE # 2.2 TH/MM3 (1.0-4.8); MEAN CORPUSCULAR HEMOGLOBIN 31.1 PG (27.0-34.0); MEAN CORPUSCULAR HGB CONC 34.5 % (32.0-36.0); MONO % 5.1 % (0.0-8.0); MONOCYTE # 0.6 TH/MM3 (0-0.9); PLATELET COUNT 204 TH/MM3 (150-450); RED BLOOD COUNT 4.23 MIL/MM3 (4.50-5.90); RED CELL DISTRIBUTION WIDTH 12.6 % (11.6-17.2); WHITE BLOOD COUNT 11.4 TH/MM3 (4.0-11.0)
[2017-10-17 03:51] LABS: INTERNATIONAL NORMALIZED RATIO 1.1 RATIO
[2017-10-17] MEDS: CHLORHEXIDINE GLUCONATE 2 % 1 PACK (2 CLOTHS)(taper/protocol) TOPICAL SCH (04:00)
[2017-10-17 04:20] LABS: AST (GOT) 156 U/L (15-37); BICARBONATE 31.4 MEQ/L (21.0-32.0); BLOOD UREA NITROGEN 11 MG/DL (7-18); CALCIUM 8.5 MG/DL (8.5-10.1); CHLORIDE 107 MEQ/L (98-107); CREATININE 1.57 MG/DL (0.60-1.30); GLOMERULAR FILTRATION RATE 52 ML/MIN (>89); GLUCOSE,RANDOM 111 MG/DL (74-106); MAGNESIUM 2.2 MG/DL (1.5-2.5); SODIUM (NA) 145 MEQ/L (136-145)
[2017-10-17 04:33] LABS: ALKALINE PHOSPHATASE 70 U/L (45-117); ALT (GPT) 79 U/L (12-78); PHOSPHORUS 2.6 MG/DL (2.5-4.9); TOTAL BILIRUBIN ADULT 0.9 MG/DL (0.2-1.0); TOTAL PROTEIN 6.3 GM/DL (6.4-8.2)
[2017-10-17] MEDS: THIAMINE INJ 100 MG in SODIUM CHLORIDE 0.9% INJ 100 ML IV SCH (06:12)
[2017-10-17] MEDS: chlordiazePOXIDE 25 MG CAP PO SCH ×3 (08:07→17:36)
[2017-10-17] MEDS: SODIUM CHLORIDE 0.9% FLUSH 10 ML FLUSH IV FLUSH SCH ×2 (08:07→21:05)
[2017-10-17] MEDS: HALOPERIDOL 5 MG TAB PO SCH ×2 (08:07→21:04)
[2017-10-17] MEDS ORDERED: POTASSIUM CHLORIDE 20 MEQ CONTROLLED RELEASE TAB PO ONE (08:15)
--- NOTE | 2017-10-17 10:16 | HHI.PR ---
Subjective Remarks Follow-up encephalopathy. Today he is more awake and oriented, calm and cooperative. Off Precedex. Discussed with critical care medicine psychiatry. Patient will be transferred to [facility]. Initiate [place] Act Objective Vitals Vital Signs Date Time Temp Pulse Resp B/P (MAP) Pulse Ox O2 Delivery O2 Flow Rate FiO2 10/17/17 06:00 80 10/17/17 04:00 98.8 82 27 138/61 (86) 92 10/17/17 04:00 82 10/17/17 03:30 79 8 135/66 (89) 96 10/17/17 03:00 83 23 127/69 (88) 92 10/17/17 02:30 84 26 127/58 (81) 93 10/17/17 02:00 84 28 135/60 (85) 93 10/17/17 02:00 84 10/17/17 01:30 84 24 133/59 (83) 95 10/17/17 01:00 85 29 132/62 (85) 94 10/17/17 00:30 86 30 134/64 (87) 94 10/17/17 00:00 87 10/17/17 00:00 89 30 90 10/17/17 00:00 98.7 89 20 93/67 (76) 94 10/16/17 23:30 89 20 135/61 (85) 95 10/16/17 23:00 91 20 131/59 (83) 92 10/16/17 22:30 92 20 128/60 (82) 93 10/16/17 22:00 93 10/16/17 22:00 95 27 134/60 (84) 91 10/16/17 21:30 96 32 132/60 (84) 90 10/16/17 21:00 96 32 137/60 (85) 92 10/16/17 20:30 94 27 133/61 (85) 95 10/16/17 20:00 98.4 94 16 132/74 (93) 96 10/16/17 20:00 95 10/16/17 18:00 116 10/16/17 17:00 120 10/16/17 16:00 112 10/16/17 16:00 112 25 151/78 (102) 100 10/16/17 15:00 104 10/16/17 14:00 109 10/16/17 13:00 113 10/16/17 12:00 109 10/16/17 12:00 98.5 109 26 158/88 (111) 100 10/16/17 11:00 109 I/O 10/16/17 10/16/17 10/16/17 10/17/17 10/17/17 10/17/17 07:00 15:00 23:00 07:00 15:00 23:00 Intake Total 120 ml 1201 ml 1952 ml 1620 ml 1319 ml Output Total 800 ml 1900 ml 1600 ml Balance -680 ml 1201 ml 52 ml 20 ml 1319 ml Intake Oral 120 ml 900 ml 620 ml IV Total 1201 ml 1052 ml 1000 ml 1319 ml Output Urine Total 800 ml 1900 ml 1600 ml # Voids 1 # Bowel Movements 0 0 Result Diagram: 10/17/17 0328 10/17/17 0328 Imaging Last Impressions Radius/Ulna X-Ray 10/16/17 0000 Signed Impressions: Service Date/Time: Monday, October 16, 2017 16:13 - CONCLUSION: Nonspecific soft tissue swelling. Ed Trammell MD Head CT 10/15/17243 Signed Impressions: Service Date/Time: Sunday, October 15, 2017 12:25 - CONCLUSION: No acute abnormality demonstrated. Ed Trammell MD Chest X-Ray 10/15/17243 Signed Impressions: Service Date/Time: Sunday, October 15, 2017 03:04 - CONCLUSION: No acute disease. Ed Rene MD Objective Remarks GENERAL: male lying in bed off restraints SKIN: Abrasion right forehead bruises noted in his back right medial thigh EYES: Pupils equal round and reactive. Extraocular motions intact. No scleral icterus. No injection or drainage. CARDIOVASCULAR: Regular rate and rhythm without murmurs, gallops, or rubs. RESPIRATORY: Clear to auscultation. Breath sounds equal bilaterally. No wheezes , rales, or rhonchi. GASTROINTESTINAL: Abdomen soft, nondistended. MUSCULOSKELETAL: Extremities without clubbing, cyanosis, or edema. No joint effusion, or edema noted. NEUROLOGICAL: Appears sedated but oriented 3 moving all extremities speech normal. Procedures none A/P Problem List: (1) Rhabdomyolysis ICD Code: M62.82 - Rhabdomyolysis Status: Acute Assessment and Plan 1. Rhabdomyolysis likely from cocaine. Improving continue NS IV infusion and close monitoring of CK levels 2. Acute kidney injury secondary to above. Nonoliguric.Improving. Avoid nephrotoxins consider imaging study and nephrology consult 3. Cocaine intoxication/Polysubstance abuse. He has been counseled. [facility] protocol Monitor for signs of withdrawal 4. Toxic encephalopathy. Much improved. Continue Haldol and RTC Librium discussed with psychiatry, long history of substance abuse. Initiate [place] Act and transfer to [facility]. Restraints prn 5. Fever possible sepsis. Chest x-ray image interpreted by me with no acute cardiopulmonary disease. Urinalysis not suggestive of UTI. Consider lumbar puncture if persistent fever and confusion FEN Regular diet Electrolytes: monitor and replete prn IVF at 200 cc/hr Wd care Discharge Planning Not ready for dc needs aggressive IV hydration Problem Qualifiers (1) Rhabdomyolysis: Qualified Codes: M62.82 - Rhabdomyolysis Mitul Booker MD Oct 17, 2017 10:16
--- NOTE | 2017-10-17 10:28 | HHI.CCPN ---
Subjective Remarks/Hospital Course This is a 32-year-old male with no reported psychiatric history and no reported previous medical history, that presented on 10/15 via EMS after he was found down , confused and agitated in someone's backyard. The patient remained disoriented . He does not answer my questions and any coherent manner Per emergency department documentation, EMS reports that the patient smoked a cigarette that was laced with something and then he became agitated. The patient was so agitated that he became violent and had to be restrained. The patient received 350 mg ketamine IM for delirious agitation in the ED. He was previously admitted approximately a week ago . At that time patient was requesting to be discharged and that he did not want to stay behind locked doors. He did not present any evidence of any psychosis, no doug or hypomania at that time. At that time the patient did not meet criteria to remain under the [place] Act as he did not present evidence of unstable mental illness. [place] statues excludes intoxication or conditions manifested only by antisocial behavior substance abuse impairment as criteria for the [place] Act. The [place] Act was lifted and the patient was discharged home. On this readmission the patient had laboratory and imaging studies the patient was noted to have rhabdomyolysis with a significantly elevated creatinine kinase, tachypneic and tachycardic, was admitted to the hospitalist service. Overnight the patient received sedatives was placed on a CIWA protocol and remains confused, lethargic ,and agitated requiring 4 point restraints. Critical care medicine was consulted. Subjective: 10/17: No acute issues overnight. Precedex infusion was instituted at 1900 hrs. last evening. Early this a.m. Precedex was discontinued the patient is alert oriented following commands tolerating full regular diet. Creatinine kinase levels decreasing. Patient continues on half normal saline at 200 cc an hour. Patient now more compliant. Objective Vital Signs Date Time Temp Pulse Resp B/P (MAP) Pulse Ox O2 Delivery O2 Flow Rate FiO2 10/17/17 06:00 80 10/17/17 04:00 98.8 27 138/61 (86) 92 10/15/17 19:44 Room Air Intake and Output 10/17/17 10/17/17 10/18/17 08:00 16:00 00:00 Intake Total 2939 ml Output Total 1600 ml Balance 1339 ml Result Diagram: 10/17/17 0328 4/11/01 327 Imaging Last Impressions Head CT 10/15/17243 Signed Impressions: Service Date/Time: Sunday, October 15, 2017 12:25 - CONCLUSION: No acute abnormality demonstrated. Ed Trammell MD Chest X-Ray 10/15/17243 Signed Impressions: Service Date/Time: Sunday, October 15, 2017 03:04 - CONCLUSION: No acute disease. Ed Rene MD Procedures none Objective Remarks GENERAL: Disheveled well-developed well male, bruising noted left forearm, exquisitely painful upon touch. Light bruising noted on forehead SKIN: Warm and dry. HEAD: Atraumatic. Normocephalic. EYES: Pupils equal and round. No scleral icterus. No injection or drainage. ENT: No nasal bleeding or discharge. Mucous membranes pink and moist. NECK: Trachea midline. No JVD. CARDIOVASCULAR: Normal rate, tachycardic rhythm. RESPIRATORY: No accessory muscle use. Clear to auscultation. Breath sounds equal bilaterally. GASTROINTESTINAL: Abdomen soft, non-tender, nondistended. No guarding. MUSCULOSKELETAL: Extremities without clubbing, cyanosis, or edema. No obvious deformities. Tenderness upon palpation left forearm NEUROLOGICAL: Awake and alert. RASS 0. No gross focal/sensory deficits. Follows commands in all 4 extremities. A/P Assessment and Plan Neurologic: Polysubstance use disorder Altered mental status Metabolic encephalopathy Agitation Neuro checks per ICU protocol Minimize sedative type medication Provide Haldol for agitation Discontinue CIWA protocol at this time, discontinue Precedex Consider Ativan as needed Possible concomitant alcohol withdrawal seizure precautions Continue restraints for patient safety Librium every 8 hours 10/15 CT brain-no acute disease GCS 15-awake, alert, belligerent Respiratory: Maintain O2 saturation greater than 92% Provide O2 via nasal cannula 1-4 LPM N/C Duo nebs as needed 10/15-chest x-ray no active disease Cardiovascular: Sinus tachycardia Obtain 12-lead EKG Will avoid beta blockers in the setting of cocaine use Consider hydralazine and calcium channel дмитрий Obtain troponin levels and trend Renal: Acute kidney injury Insert fernandez and maintain strict I&O -- Strict I/Os FEN/GI: Rhabdomyolysis Acute kidney injury Electrolyte derangement Monitor BMP and replete per ICU protocol CK [id number]-> 6600 today continue to monitor Half-normal saline at 200 cc/hour AST noted elevation 197 Heme/ID: Leukocytosis Monitor WBC-continue to trend Will obtain blood and urine cultures if clinically indicated Endocrine: Hyperglycemia Obtain hemoglobin A1c TSH 1.730 -- SSI Prophylaxis: GI Prophylaxis Famotidine DVT Prophylaxis -- SCDs SQ Heparin Lines: Peripheral IVsx2 Dispo: Level 2 follow up Planned transfer to [facility] in a.m. Discussed with Dr. Booker, and INSTITUTIONAL NUTRITION CONSULTANT at bedside. Physician Earnestine Ramey MD Oct 17, 2017 10:28
--- NOTE | 2017-10-17 12:03 | HHI.PYPN ---
Subjective Remarks The patient was seen today for psychiatric reevaluation. Chart was reviewed, case discussed with nurse in charge and also with Dr. Booker. On psychiatric evaluation patient is still sedated, but more alert and cooperative. Patient reports feeling much better. He reports being in a okay mood. Patient denies suicidal enemas ideation, he denies visual and auditory hallucinations. Patient is oriented 3. He says that he is committed to continue medical treatment and recommendations. No agitation or aggressive behavior observed at this moment. Mental Status Examination Appearance: Dirty, Disheveled Consciousness: Clouded Orientation: x4 Motor Activity: Normal gait Speech: Unremarkable Language: Adequate Fund of Knowledge: Adequate Memory: Unremarkable Mood: Irritable Affect: Irritable Thought Process & Associations: Loose associations, Disorganized Thought Content: Appropriate Hallucination Type: None Delusion Type: Bizarre, Paranoid Suicidal Ideation: No Suicidal Plan: No Suicidal Intention: No Homicidal Ideation: No Homicidal Plan: No Homicidal Intention: No Insight: Fair Judgment: Impulsive Results Labs Test 10/17/17 03:28 White Blood Count 11.4 TH/MM3 Red Blood Count 4.23 MIL/MM3 Hemoglobin 13.1 GM/DL Hematocrit 38.1 % Mean Corpuscular Volume 90.0 FL Mean Corpuscular Hemoglobin 31.1 PG Mean Corpuscular Hemoglobin Concent 34.5 % Red Cell Distribution Width 12.6 % Platelet Count 204 TH/MM3 Mean Platelet Volume 8.0 FL Neutrophils (%) (Auto) 73.0 % Lymphocytes (%) (Auto) 19.7 % Monocytes (%) (Auto) 5.1 % Eosinophils (%) (Auto) 1.6 % Basophils (%) (Auto) 0.6 % Neutrophils # (Auto) 8.3 TH/MM3 Lymphocytes # (Auto) 2.2 TH/MM3 Monocytes # (Auto) 0.6 TH/MM3 Eosinophils # (Auto) 0.2 TH/MM3 Basophils # (Auto) 0.1 TH/MM3 CBC Comment DIFF FINAL Differential Comment Prothrombin Time 11.0 SEC Prothromb Time International Ratio 1.1 RATIO Blood Urea Nitrogen 11 MG/DL Creatinine 1.57 MG/DL Random Glucose 111 MG/DL Total Protein 6.3 GM/DL Albumin 3.0 GM/DL Calcium Level 8.5 MG/DL Phosphorus Level 2.6 MG/DL Magnesium Level 2.2 MG/DL Alkaline Phosphatase 70 U/L Aspartate Amino Transf (AST/SGOT) 156 U/L Alanine Aminotransferase (ALT/SGPT) 79 U/L Total Bilirubin 0.9 MG/DL Sodium Level 145 MEQ/L Potassium Level 3.6 MEQ/L Chloride Level 107 MEQ/L Carbon Dioxide Level 31.4 MEQ/L Anion Gap 7 MEQ/L Estimat Glomerular Filtration Rate 52 ML/MIN Ammonia 28 MCMOL/L Total Creatine Kinase 6630 U/L Creatine Kinase MB 3.4 NG/ML Creatine Kinase MB % 0.1 % Vitals/IOs Vital Signs Date Time Temp Pulse Resp B/P (MAP) Pulse Ox O2 Delivery O2 Flow Rate FiO2 10/17/17 10:00 88 10/17/17 10:00 24 130/73 (92) 98 10/17/17 08:00 98.9 10/15/17 19:44 Room Air Intake and Output 10/17/17 10/17/17 10/18/17 08:00 16:00 00:00 Intake Total 2939 ml Output Total 1600 ml Balance 1339 ml Assessment & Plan Problem List: (1) Psychosis ICD Codes: F29 - Unspecified psychosis not due to a substance or known physiological condition Status: Acute Assessment & Plan: Patient definitely doing much better in his mood and thought process. He denies suicidal and homicidal ideation, he denies visual and auditory hallucinations. Still sedated. Continue current psychotropic regimen. Patient does not meet criteria for involuntary psychiatric admission at this moment Assessment & Plan Estimated LOS: days Justification for Cont. Inpt. No criteria for psychiatric admission. Problem Qualifiers (1) Psychosis: Qualified Codes: F29 - Unspecified psychosis not due to a substance or known physiological condition Edenilson Moreno MD Oct 17, 2017 12:03
[2017-10-17] MEDS ORDERED: HALO5TAB PO (17:16)
[2017-10-17] MEDS ORDERED: cloNIDine HCL 0.1 MG TAB PO ONE (23:15)
[2017-10-17] MEDS ORDERED: LORazepam 2 MG TAB PO PRN (23:15)
[2017-10-17] MEDS ORDERED: LORazepam 2 MG/ML VIAL IV PUSH PRN ×4 (23:15)
[2017-10-17] MEDS ORDERED: LORazepam 1 MG TAB PO PRN (23:15)
[2017-10-17] MEDS ORDERED: FLUMAZENIL 0.5 MG/5 ML VIAL IV PUSH PRN (23:15)
[2017-10-18] VITALS (7 sets, daily range): BP systolic 97–142; BP diastolic 62–88; PULSE 78–96; RESP 18–20; TEMP 89–98.6; O2SAT 95–97
[2017-10-18] MEDS ORDERED: THIAMINE INJ 100 MG in SODIUM CHLORIDE 0.9% INJ 100 ML IV SCH ×2
[2017-10-18] MEDS ORDERED: MULTIVITAMIN INJ 10 ML, FOLIC ACID INJ 1 MG in SODIUM CHLORID 0.9% 500 ML INJ 500 ML IV SCH ×3
[2017-10-18] MEDS: CHLORHEXIDINE GLUCONATE 2 % 1 PACK (2 CLOTHS)(taper/protocol) TOPICAL SCH (01:12)
[2017-10-18] MEDS: SODIUM CHLORIDE 0.9% FLUSH 10 ML FLUSH IV FLUSH SCH (09:00)
[2017-10-18] MEDS: HALOPERIDOL 5 MG TAB PO SCH (09:07)
[2017-10-18] MEDS: chlordiazePOXIDE 25 MG CAP PO SCH (09:07)
--- NOTE | 2017-10-18 10:13 | HHI.PR ---
Subjective Remarks Follow-up rhabdomyolysis, encephalopathy. The patient awakens to verbal stimuli , but is very tired and falls back to sleep. He denies pain currently. Denies shortness of breath. Objective Vitals Vital Signs Date Time Temp Pulse Resp B/P (MAP) Pulse Ox O2 Delivery O2 Flow Rate FiO2 10/18/17 08:27 98.6 86 20 142/71 (94) 97 10/18/17 05:00 89.0 88 18 141/88 (105) 97 10/18/17 00:00 98.2 89 18 97/62 (74) 95 10/17/17 23:07 154/104 (121) 10/17/17 22:16 99.1 108 18 176/103 (127) 96 10/17/17 20:00 104 10/17/17 20:00 98.7 104 34 155/65 (95) 99 10/17/17 18:00 95 10/17/17 16:00 103 10/17/17 16:00 99.0 103 11 136/75 (95) 99 10/17/17 15:00 101 28 142/86 (104) 100 10/17/17 14:00 98 10/17/17 14:00 98 25 137/78 (97) 99 10/17/17 13:00 99 25 127/72 (90) 97 10/17/17 12:00 98.9 98 31 136/74 (94) 97 10/17/17 12:00 98 10/17/17 11:00 93 29 150/86 (107) 98 I/O 10/17/17 10/17/17 10/17/17 10/18/17 10/18/17 10/18/17 07:00 15:00 23:00 07:00 15:00 23:00 Intake Total 1620 ml 1327 ml 2764 ml Output Total 1600 ml 2450 ml 450 ml 600 ml Balance 20 ml 1327 ml 314 ml -450 ml -600 ml Intake Oral 620 ml 0 ml IV Total 1000 ml 1327 ml 2764 ml Output Urine Total 1600 ml 2450 ml 450 ml 600 ml # Voids 1 2 # Bowel Movements 0 1 Result Diagram: 10/17/17 0328 10/17/17 0328 Imaging Last Impressions Radius/Ulna X-Ray 10/16/17 0000 Signed Impressions: Service Date/Time: Monday, October 16, 2017 16:13 - CONCLUSION: Nonspecific soft tissue swelling. Ed Trammell MD Head CT 10/15/17243 Signed Impressions: Service Date/Time: Sunday, October 15, 2017 12:25 - CONCLUSION: No acute abnormality demonstrated. Ed Trammell MD Chest X-Ray 10/15/17243 Signed Impressions: Service Date/Time: Sunday, October 15, 2017 03:04 - CONCLUSION: No acute disease. Ed Rene MD Objective Remarks General: No acute distress. Heart: Regular rate and rhythm. No murmur. Lungs: Clear to auscultation bilaterally. No wheezes, rales, or rhonchi. Breathing is nonlabored. Abdomen: Soft, nontender, nondistended. Extremities: No lower extremity edema. Psych: Sleeping, but awakens to verbal stimuli. Very lethargic and falls asleep again during examination. Neuro: Sedated, lethargic. Procedures none Urinary Catheter: No Vascular Central Line Catheter: No A/P Problem List: (1) Rhabdomyolysis ICD Code: M62.82 - Rhabdomyolysis Status: Acute (2) Acute kidney injury ICD Code: N17.9 - Acute kidney failure, unspecified (3) Polysubstance abuse ICD Code: F19.10 - Other psychoactive substance abuse, uncomplicated (4) Cocaine intoxication ICD Code: F14.929 - Cocaine use, unspecified with intoxication, unspecified (5) Toxic encephalopathy ICD Code: G92 - Toxic encephalopathy Assessment and Plan 1. Rhabdomyolysis: Likely secondary to cocaine abuse. Continue IV fluids. CK has been trending down. Labs are pending today. 2. Acute kidney injury: Secondary to rhabdomyolysis. Nonoliguric. Creatinine improving. Avoid nephrotoxins. Labs are pending this morning. 3. Polysubstance abuse, cocaine intoxication: Patient has been counseled. Continue CIWA protocol. Taper Librium. Supplement thiamine, multivitamin, folate. 4. Toxic encephalopathy: Patient is sedated/lethargic this morning. Will decrease Librium. Initial encephalopathy secondary to polysubstance abuse, cocaine intoxication. Continue Haldol. Appreciate psychiatry recommendations. [facility] act initiated. Plan for transfer to [facility] at discharge. 5. DVT prophylaxis: Heparin, SCDs. 6. GI prophylaxis: Famotidine. Discharge Planning Pending further clinical improvement. Plan for transfer to [facility] under [facility] act at discharge. Problem Qualifiers (1) Rhabdomyolysis: Qualified Codes: M62.82 - Rhabdomyolysis Momo Reina MD Oct 18, 2017 10:13
[2017-10-18 11:53] LABS: AUTOMATED NEUTROPHIL # 5.7 TH/MM3 (1.8-7.7); BASOPHIL % 0.5 % (0.0-2.0); EOSINOPHIL # 0.3 TH/MM3 (0-0.4); EOSINOPHIL % 4.1 % (0.0-4.0); HEMOGLOBIN 13.1 GM/DL (13.0-17.0); LYMPH % 18.1 % (9.0-44.0); LYMPHOCYTE # 1.4 TH/MM3 (1.0-4.8); MEAN CELL VOLUME 89.7 FL (80.0-100.0); MEAN CORPUSCULAR HGB CONC 34.5 % (32.0-36.0); MEAN PLATELET VOLUME 8.2 FL (7.0-11.0); MONO % 5.2 % (0.0-8.0); MONOCYTE # 0.4 TH/MM3 (0-0.9); NEUT % 72.1 % (16.0-70.0); PLATELET COUNT 221 TH/MM3 (150-450); RED BLOOD COUNT 4.24 MIL/MM3 (4.50-5.90); RED CELL DISTRIBUTION WIDTH 12.4 % (11.6-17.2)
[2017-10-18 12:31] LABS: ALBUMIN 3.3 GM/DL (3.4-5.0); AST (GOT) 119 U/L (15-37); BLOOD UREA NITROGEN 10 MG/DL (7-18); CALCIUM 9.1 MG/DL (8.5-10.1); CHLORIDE 108 MEQ/L (98-107); CREATININE 1.27 MG/DL (0.60-1.30); GLOMERULAR FILTRATION RATE 66 ML/MIN (>89); GLUCOSE,RANDOM 114 MG/DL (74-106); MAGNESIUM 1.7 MG/DL (1.5-2.5); SODIUM (NA) 144 MEQ/L (136-145)
[2017-10-18 12:47] LABS: ALKALINE PHOSPHATASE 67 U/L (45-117); ALT (GPT) 79 U/L (12-78); TOTAL BILIRUBIN ADULT 0.4 MG/DL (0.2-1.0); TOTAL PROTEIN 6.8 GM/DL (6.4-8.2)
[2017-10-18] MEDS ORDERED: chlordiazePOXIDE 25 MG CAP PO SCH (13:00)
[2017-10-19] MEDS ORDERED: FOLIC ACID 1 MG TAB PO SCH (09:00)
[2017-10-19] MEDS ORDERED: MULTIVITAMIN TAB PO SCH (09:00)
[2017-10-19] MEDS ORDERED: THIAMINE HCL 100 MG TAB PO SCH (09:00)
[2017-10-21] MEDS ORDERED: THIAMINE HCL 100 MG TAB PO SCH (09:00)
== END 2017-10-18 19:40 | disposition left against medical advice (07) | DRG 917 ==
LOC: NEPE 02:38 → NEDA 05:14 → HIMW 20:50 → N05A 10-17 22:00
PROVIDERS: ADMIT Family Medicine; ATTEND Family Medicine
DX: T50.904A Poisoning by unspecified drugs, medicaments and biological substances, undetermined, initial encounter (principal); G92 Toxic encephalopathy; N17.9 Acute kidney failure, unspecified; M62.82 Rhabdomyolysis; F29 Unspecified psychosis not due to a substance or known physiological condition; R00.0 Tachycardia, unspecified; Y90.1 Blood alcohol level of 20-39 mg/100 ml; F14.129 Cocaine abuse with intoxication, unspecified; F19.129 Other psychoactive substance abuse with intoxication, unspecified; D72.829 Elevated white blood cell count, unspecified; R73.9 Hyperglycemia, unspecified; S00.81XA Abrasion of other part of head, initial encounter; S70.311A Abrasion, right thigh, initial encounter; X58.XXXA Exposure to other specified factors, initial encounter; R50.9 Fever, unspecified; F60.89 Other specific personality disorders; F43.10 Post-traumatic stress disorder, unspecified; R40.2410 Glasgow coma scale score 13-15, unspecified time; Z78.1 Physical restraint status; Z72.0 Tobacco use; Z72.89 Other problems related to lifestyle
CPT/HCPCS: 70450; 71045; 73090; 80048; 80053; 80307; 81001; 82140; 82550; 82552; 82948; 83036; 83690; 83735; 84100; 84443; 84484; 85007; 85025; 85027; 85610; 85730; 87641; 93005; 96361; 96374; 96376; J1200; J1630; J2060; J3411; J7030; J7040; J7050